=== PATIENT | female | born 1955 | race Caucasian/White ===

== ENCOUNTER → 2016-10-03 | Outpatient (CLI) | payer OTHER | LOC: FIMAGING 08:00 | DX: Z12.31 Encounter for screening mammogram for malignant neoplasm of breast (principal) | CPT/HCPCS: G0202 ==

== ENCOUNTER 2016-10-20 18:53 | Emergency (ER) | payer OTHER ==
[2016-10-20 18:59] VITALS: TEMP 97.9
[2016-10-20] MEDS ORDERED: IPRATROPIUM/ALBUTEROL 3 ML DEYVIAL IH ONE (19:03)
[2016-10-20] MEDS ORDERED: NS 1,000 ML IV ONE (19:20)
[2016-10-20] MEDS ORDERED: DEXAMETHASONE 4 MG TAB PO ONE (19:20)
--- NOTE | 2016-10-20 19:20 | EDPHY ---
H & P Time Seen by Provider: 10/20/16 19:05 HPI/ROS: CHIEF COMPLAINT: Shortness of breath HISTORY OF PRESENT ILLNESS: 61-year-old female with a history of asthma presents with shortness of breath. 4 days ago she developed nasal congestion and was prescribed Augmentin for sinusitis by her primary care physician. Since then she has developed a sore throat, a hoarse voice and a cough. She is having difficulty swallowing and breathing because of hoarseness, throat swelling. REVIEW OF SYSTEMS: Constitutional: No fever, no chills Eyes: No visual changes Cardiac: No chest pain Gastrointestinal: No nausea, no vomiting, no abdominal pain Genitourinary: no dysuria Musculoskeletal: No leg pain or swelling Skin: No rash Neurological: No headache, no numbness, no weakness Psychiatric: No depression Past Medical/Surgical History: Asthma Smoking Status: Never smoked Physical Exam: General Appearance: Alert, no acute distress, hoarse voice Eyes: Pupils equal and round, no conjunctival injection ENT, Mouth: Mucous membranes moist, pharyngeal erythema Neck: Normal inspection Respiratory: Lungs are clear to auscultation, no wheezing Cardiovascular: Regular rate and rhythm Gastrointestinal: Abdomen is soft and nontender Neurological: A&O, nonfocal exam Skin: Warm and dry, no rash Extremities: normal inspection Psychiatric: Mood and affect normal Constitutional: Initial Vital Signs Temperature (C) 36.6 C 10/20/16 18:57 Heart Rate 125 H 10/20/16 18:57 Respiratory Rate 24 H 10/20/16 18:57 Blood Pressure 146/98 H 10/20/16 18:57 O2 Sat (%) 94 10/20/16 18:57 O2 Delivery Mode Room Air Allergies/Adverse Reactions: No Known Allergies Allergy (Unverified 10/20/16 18:56) Home Medications: Medication Instructions Recorded Albuterol 10/20/16 Amox-Clav 200-28.5 mg Tab Chew 10/20/16 Fluticasone Nasal 10/20/16 Medical Decision Making - Diagnostics Imaging: Chest x-ray independently reviewed by me reveals no acute disease. ED Course/Re-evaluation: Decadron 6 mg orally given for sore throat. A DuoNeb followed by an albuterol neb given for bronchospasm. No wheezing on exam, but the patient feels that the nebs may make her feel better. IV fluids given for mild dehydration. 8:30 p.m.-feels much better and wants to go home. Chest remains clear to auscultation. Differential Diagnosis: Includes though not limited to pneumonia, hypoxia, bronchospasm, epiglottitis. - Data Points Medications Given: Discontinued Medications Albuterol (Proventil Neb) 3 ml IH EDNOW ONE Stop: 10/20/16 19:41 Last Admin: 10/20/16 19:58 Dose: 3 ml Albuterol/Ipratropium (Duoneb) 3 ml IH EDNOW ONE Stop: 10/20/16 19:04 Last Admin: 10/20/16 19:05 Dose: 3 ml Dexamethasone (Decadron) 6 mg PO EDNOW ONE Stop: 10/20/16 19:21 Last Admin: 10/20/16 19:58 Dose: 6 mg Sodium Chloride (Ns) 1,000 mls @ 0 mls/hr IV ONCE ONE PRN Reason: Wide Open Stop: 10/20/16 19:21 Last Admin: 10/20/16 19:22 Dose: 1,000 mls Departure - Departure Disposition: Home, Routine, Self-Care Clinical Impression: Viral syndrome Condition: Good Instructions: Viral Syndrome (ED) Additional Instructions: Drink plenty of fluids. Return for worsening symptoms or any concerns. Referrals: Angelita Choudhury MD [Primary Care Provider] - As per Instructions
[2016-10-20] MEDS ORDERED: ALBUTEROL 3 ML DEYVIAL ONE (19:39)
[2016-10-20] MEDS ORDERED: ALBUTEROL 3 ML DEYVIAL IH ONE (19:40)
[2016-10-20 20:04] VITALS: O2SAT 96
[2016-10-20 20:40] VITALS: BP 138/89; PULSE 109; RESP 18
== END 2016-10-20 20:38 | disposition home or self-care (01) ==
DX: B34.9 Viral infection, unspecified (principal); J45.909 Unspecified asthma, uncomplicated